=== PATIENT | female | born 1965 | race Caucasian/White ===

== ENCOUNTER 2016-05-17 08:55 | Day surgery (SDC) | payer OTHER ==
[~2016-05-17 08:55] MED LIST: Lidocaine 1% 20ml (SOUTH OMNI) ONE
[2016-05-17 11:52] VITALS: BP 133/72
--- NOTE | 2016-05-17 14:36 | GI Report ---
REFERRING PHYSICIAN: Dr. Vanessa Brian CTO: Jose L Jeffrey MD PROCEDURE MEDICATION: Propofol as per anesthesia. INDICATIONS: A 50-year-old woman is referred for her initial colonoscopy screening. She denies change in stools or bleeding. She denies a family history of any colon issues that she is aware of. FINDINGS: Three flat polyps, biopsied, and removed at the rectosigmoid junction. PROCEDURE PERFORMED: Colonoscopy with biopsies. PROCEDURE: An Olympus video colonoscope was advanced to the rectum and slowly advanced all the way to the cecum. Appendiceal orifice and terminal ileum were normal. On slow withdrawal, cecum, ascending colon, and transverse colon with no obvious intraluminal lesions noted. Descending colon and sigmoid with some redundancy and a few small diverticula. Retroflexion of the rectum was normal except for 3 flat polyps at the rectosigmoid junction at 2 to 3 mm in size and cold biopsy removed. They are probably hyperplastic polyps. The patient tolerated the procedure well. RECOMMENDATIONS: 1. A high-fiber diet. 2. Consider re-looking at her colon in 5 to 10 years, 5 years if they are adenomatous, and could be 10 years if they are hyperplastic. 3. Follow up with Dr. Brian. cc: Dr. Vanessa Brian [facility] CENTERJamison
== END 2016-05-17 12:48 | disposition home or self-care (01) ==
LOC: OPSURG 08:55
PROVIDERS: ATTEND Internal Medicine Gastroenterology
DX: Z12.11 Encounter for screening for malignant neoplasm of colon (principal); D12.7 Benign neoplasm of rectosigmoid junction
CPT/HCPCS: 45380; S1016

== ENCOUNTER 2016-10-21 15:43 | Outpatient (CLI) | payer OTHER ==
[2016-10-21 16:29] LABS: BILIRUBIN,DIRECT 0.1 mg/dL (0.0-0.4)
== END 2016-10-21 16:00 ==
LOC: LAB 15:43
PROVIDERS: ATTEND Physician Assistant
DX: B35.1 Tinea unguium (principal); Z79.899 Other long term (current) drug therapy
CPT/HCPCS: 36415; 80076

== ENCOUNTER 2017-05-26 11:32 | Outpatient (CLI) | payer OTHER ==
[2017-05-26 17:51] LABS: DIRECT BILIRUBIN <0.2 mg/dL (<0.4); TOTAL PROTEIN 6.9 g/dL (6.0-8.5)
== END 2017-05-26 11:33 ==
LOC: LAB 11:32
PROVIDERS: ATTEND Physician Assistant
DX: B35.1 Tinea unguium (principal); Z79.899 Other long term (current) drug therapy
CPT/HCPCS: 36415; 80076

== ENCOUNTER 2017-10-27 12:09 | Outpatient (CLI) | payer OTHER ==
[2017-10-27 21:51] LABS: DIRECT BILIRUBIN <0.2 mg/dL (<0.4); TOTAL PROTEIN 6.7 g/dL (6.0-8.5)
== END 2017-10-27 12:10 ==
LOC: LAB 12:09
PROVIDERS: ATTEND Physician Assistant
DX: B35.1 Tinea unguium (principal); Z79.899 Other long term (current) drug therapy
CPT/HCPCS: 36415; 80076